=== PATIENT | female | born 1940 | race Caucasian/White ===

== ENCOUNTER 2016-11-15 12:34 | Inpatient (IN) | payer MEDICARE, OTHER ==
[~2016-11-15] VITALS: Ht 154.9 cm; Wt 43.7 kg
[~2016-11-15 12:34] MED LIST: ASPI81CH43 PO; ATE50T PO; BISA-13 PO; IBAN150T PO; OMEP20CA74 PO; SIMV40TA96 PO; VALS40TA2 PO
[2016-11-15] MEDS ORDERED: ONDANSETRON HCL 4 MG/2 ML VIAL ONE (13:56)
[2016-11-15 14:25] LABS: Basophils # (auto) 0 uL; Basophils % (auto) 0.1 % (0.0-2.0); Eosinophils # (auto) 0 uL; Platelet Count (auto) 337 10^3/uL (140-450); White Blood Cell 12.5 10^3/uL (4.4-10.8)
[2016-11-15 14:26] LABS: Hematocrit 41.4 % (36.0-46.0); Hemoglobin 13.5 g/dL (12.2-16.2); Lymphocytes # (auto) 0.8 uL; Lymphocytes % (auto) 6.4 % (10.0-50.0); Mean Corpuscular Hemoglobin 23.8 pg (28.0-32.0); Mean Corpuscular Hgb Conc. 32.5 g/dL (32.0-36.0); Mean Corpuscular Volume 73.2 fL (80.0-100.0); Mean Platelet Volume 8.6 fL (6.9-10.8); Monocytes # (auto) 0.6 uL; Monocytes % (auto) 5.1 % (0.0-12.0); Neutrophils % (auto) 88.4 % (37.0-80.0); Red Cell Distribution Width 15.5 % (11.8-14.3)
[2016-11-15] MEDS ORDERED: SODIUM CHLORIDE 0.9% 1,000 ML IV ONE (14:26)
[2016-11-15] MEDS ORDERED: ONDANSETRON HCL 4 MG/2 ML VIAL IV ONE (14:30)
[2016-11-15] MEDS ORDERED: PROMETHAZINE HCL 25 MG/ML 1ML IV PRN ×2 (14:30→17:00)
[2016-11-15 14:49] LABS: Albumin 3.1 g/dL (3.4-5.0); Alkaline Phosphatase 91 U/L (45-117); Anion Gap 9 (5-15); Aspartate Aminotransferase 46 U/L (15-37); BUN/Creatinine Ratio 37.9; Bilirubin, Total 0.6 mg/dL (0.2-1.0); Blood Urea Nitrogen 22 mg/dL (7-18); Calcium 8.5 mg/dL (8.5-10.1); Carbon Dioxide 34 mmol/L (21-32); Chloride 87 mmol/L (98-107); GFR African American 129 mL/min; GFR Non-African American 107 mL/min; Glucose 90 mg/dL (74-106); Magnesium 2.5 mg/dL (1.6-2.6); Sodium 130 mmol/L (136-145); Total Protein 6.5 g/dL (6.4-8.2)
[2016-11-15 14:53] LABS: Potassium 2.8 mmol/L (3.5-5.1)
[2016-11-15] MEDS ORDERED: SOD CHL 0.9%/ KCL 40MEQ 250 ML IV ONE (15:15)
[2016-11-15] MEDS ORDERED: LORazepam 2MG/ML-1ML VIAL ONE (16:16)
[2016-11-15] MEDS ORDERED: LORazepam 2MG/ML-1ML VIAL IV ONE (16:30)
[2016-11-15] MEDS ORDERED: MORPHINE SULF INJ 2 MG/ML SYRINGE 1ML IV PRN ×2 (17:00)
[2016-11-15] MEDS: SOD CHL 0.9%/ KCL 40MEQ 1,000 ML IV SCH ×2 (17:00→21:34)
[2016-11-15] MEDS ORDERED: cefTRIAXone 1GM/50ML D5W 50 ML IV ONE (17:00)
[2016-11-15] MEDS ORDERED: TEMAZEPAM 15 MG CAP PO PRN (17:00)
[2016-11-15] MEDS ORDERED: ACETAMINOPHEN 500 MG TAB PO PRN (17:00)
[2016-11-15] MEDS ORDERED: BISACODYL 5 MG EC TAB PO PRN (17:00)
[2016-11-15] MEDS ORDERED: NITROGLYCERIN 0.4 MG SL TAB SL PRN (17:00)
[2016-11-15] MEDS ORDERED: HYDROcodone-ACET 5/325MG TAB PO PRN (17:00)
[2016-11-15] MEDS ORDERED: LORazepam 0.5 MG TAB PO PRN (17:00)
[2016-11-15] MEDS ORDERED: POTASSIUM CHLORIDE 40 MEQ in SODIUM CHL 0.9% 250 ML IV ONE (17:30)
[2016-11-15] MEDS: metroNIDAZOLE 500MG/100ML 100 ML IV SCH (18:00)
[2016-11-15 20:00] VITALS: BP 129/40
[2016-11-15 20:15] VITALS: BP 142/61
[2016-11-15] MEDS: ATORVASTATIN 20 MG TAB PO SCH (21:34)
[2016-11-15] MEDS: FAMOTIDINE 20 MG TAB PO SCH (21:34)
[2016-11-15 22:00] VITALS: BP 129/40
[2016-11-16] MEDS: metroNIDAZOLE 500MG/100ML 100 ML IV SCH ×4 (00:43→18:00)
[2016-11-16] MEDS ORDERED: HYDR12.56 PO (03:18)
[2016-11-16] MEDS ORDERED: PANT40TA2 PO (03:18)
[2016-11-16] MEDS ORDERED: LORA1TAB12 PO (03:18)
[2016-11-16] MEDS ORDERED: TRAZ150T79 PO (03:18)
[2016-11-16] MEDS ORDERED: BUSP15TA60 PO (03:18)
[2016-11-16] MEDS ORDERED: AMLO5TAB2 PO (03:18)
[2016-11-16] MEDS ORDERED: OLAN5TAB30 PO (03:18)
[2016-11-16] MEDS ORDERED: MIRT45TA3 PO (03:18)
[2016-11-16 05:47] VITALS: BP 140/66
[2016-11-16 07:36] LABS: Hematocrit 43.2 % (36.0-46.0); Hemoglobin 13.9 g/dL (12.2-16.2); Mean Corpuscular Hemoglobin 23.8 pg (28.0-32.0); Mean Corpuscular Hgb Conc. 32.2 g/dL (32.0-36.0); Mean Corpuscular Volume 73.9 fL (80.0-100.0); Mean Platelet Volume 8.9 fL (6.9-10.8); Platelet Count (auto) 336 10^3/uL (140-450); White Blood Cell 16.3 10^3/uL (4.4-10.8)
[2016-11-16 07:42] LABS: Albumin 2.9 g/dL (3.4-5.0); BUN/Creatinine Ratio 41.2; Bilirubin, Total 0.8 mg/dL (0.2-1.0); Calcium 8.3 mg/dL (8.5-10.1); Total Protein 6.4 g/dL (6.4-8.2)
[2016-11-16 07:46] LABS: Metamyelocytes % 0
[2016-11-16 07:47] LABS: Myelocytes % 0; Promyelocytes % 0; Reactive Lymphocytes 0
[2016-11-16 08:00] VITALS: BP 144/82
[2016-11-16 08:10] LABS: Anisocytosis Slight; Hypochromia Slight; Microcytosis Slight; Ovalocytes FEW; Platelet Estimate Adequate
[2016-11-16 09:00] VITALS: BP 144/82
[2016-11-16] MEDS: cefTRIAXone 1GM/50ML D5W 50 ML IV SCH (09:29)
[2016-11-16] MEDS: ENOXAPARIN SOD 40 MG/0.4 ML SYRINGE SC SCH (09:36)
[2016-11-16] MEDS: FAMOTIDINE 20 MG TAB PO SCH ×2 (10:00→22:00)
[2016-11-16 10:09] LABS: INR 1.13 (0.9-1.15); Prothrombin Time 12.3 sec (9.37-12.3)
[2016-11-16] MEDS: SOD CHL 0.9%/ KCL 40MEQ 1,000 ML IV SCH ×2 (10:30→23:00)
[2016-11-16 11:00] VITALS: BP 120/71
[2016-11-16] MEDS: ASPirin 81 mg TAB PO SCH (11:48)
[2016-11-16] MEDS: VALSARTAN 80 MG TAB PO SCH (12:02)
[2016-11-16] MEDS: PANTOPRAZOLE 40 MG TAB PO SCH (12:02)
[2016-11-16] MEDS: ATENOLOL 50 MG TAB PO SCH (12:04)
[2016-11-16 17:08] LABS: Urine Blood Negative /uL (Negative); Urine Glucose Normal (Normal); Urine Ketone 3+ (Negative); Urine Mucus FEW (None Seen); Urine Nitrite Negative (Negative); Urine RBC 11 /hpf (0 - 4); Urine Urobilinogen Normal (Negative)
[2016-11-16 17:14] LABS: Urine Bilirubin POSITIVE (Negative); Urine Color Amber (Yellow)
[2016-11-16 20:00] VITALS: BP 144/75
[2016-11-16] MEDS: ATORVASTATIN 20 MG TAB PO SCH (22:00)
[2016-11-16 22:11] VITALS: BP 144/75
[2016-11-16] MEDS ORDERED: LIDOCAINE 1% HCL (LOCAL ANESTH.) INJ 20ML MDV ID ONE (23:00)
[2016-11-17] MEDS: metroNIDAZOLE 500MG/100ML 100 ML IV SCH ×4 (00:15→17:28)
[2016-11-17 05:28] VITALS: BP 114/61
[2016-11-17] MEDS: SOD CHL 0.9%/ KCL 40MEQ 1,000 ML IV SCH ×2 (06:42→17:29)
[2016-11-17 06:50] LABS: Basophils # (auto) 0 uL; Basophils % (auto) 0.1 % (0.0-2.0); Eosinophils # (auto) 0 uL; Lymphocytes # (auto) 1.2 uL; Monocytes # (auto) 0.5 uL; Monocytes % (auto) 3.6 % (0.0-12.0)
[2016-11-17 06:56] LABS: Hematocrit 36.7 % (36.0-46.0); Lymphocytes % (auto) 7.6 % (10.0-50.0); Mean Corpuscular Hemoglobin 24.3 pg (28.0-32.0); Mean Corpuscular Hgb Conc. 32.7 g/dL (32.0-36.0); Mean Corpuscular Volume 74.3 fL (80.0-100.0); Mean Platelet Volume 8.9 fL (6.9-10.8); Neutrophils # (auto) 13.6 uL; Neutrophils % (auto) 88.7 % (37.0-80.0); Platelet Count (auto) 257 10^3/uL (140-450); Red Cell Distribution Width 15.6 % (11.8-14.3); White Blood Cell 15.3 10^3/uL (4.4-10.8)
[2016-11-17 06:58] LABS: BUN/Creatinine Ratio 45.7; Calcium 7.8 mg/dL (8.5-10.1); Potassium 3.4 mmol/L (3.5-5.1)
[2016-11-17 08:13] VITALS: BP 129/61
[2016-11-17 08:15] VITALS: BP 120/71
[2016-11-17] MEDS: VALSARTAN 80 MG TAB PO SCH (10:00)
[2016-11-17] MEDS: ASPirin 81 mg TAB PO SCH (10:00)
[2016-11-17] MEDS: ATENOLOL 50 MG TAB PO SCH (10:00)
[2016-11-17] MEDS: ENOXAPARIN SOD 40 MG/0.4 ML SYRINGE SC SCH (10:00)
[2016-11-17] MEDS: FAMOTIDINE 20 MG TAB PO SCH ×2 (10:00→21:31)
[2016-11-17] MEDS: PANTOPRAZOLE 40 MG TAB PO SCH (10:00)
[2016-11-17] MEDS ORDERED: POTASSIUM CHL 20 Meq TABLET PO ONE (10:45)
[2016-11-17] MEDS: cefTRIAXone 1GM/50ML D5W 50 ML IV SCH (11:05)
[2016-11-17] MEDS: SODIUM CHLOR 0.9% PF (SALINE LOCK) 10ML VIAL IV SCH ×2 (11:06→21:34)
[2016-11-17 12:05] VITALS: BP 126/60
[2016-11-17 16:41] VITALS: BP 128/60
[2016-11-17] MEDS: ATORVASTATIN 20 MG TAB PO SCH (21:31)
[2016-11-17 22:00] VITALS: BP 137/62
[2016-11-17] MEDS: SENNA 8.6 MG TAB PO SCH (22:00)
[2016-11-17] MEDS: DOCUSATE SOD 100 MG CAP PO SCH (22:00)
[2016-11-18] MEDS: metroNIDAZOLE 500MG/100ML 100 ML IV SCH ×5 (00:07→23:32)
[2016-11-18] MEDS: SOD CHL 0.9%/ KCL 40MEQ 1,000 ML IV SCH ×2 (04:42→11:42)
[2016-11-18 05:00] VITALS: BP 113/52
[2016-11-18 06:22] LABS: Basophils # (auto) 0 uL; Basophils % (auto) 0.1 % (0.0-2.0); Eosinophils # (auto) 0 uL; Lymphocytes # (auto) 1.1 uL
[2016-11-18 06:25] LABS: Eosinophils % (auto) 0.2 % (0.0-7.0); Hemoglobin 10.3 g/dL (12.2-16.2); Lymphocytes % (auto) 9.6 % (10.0-50.0); Mean Corpuscular Hemoglobin 24.2 pg (28.0-32.0); Mean Corpuscular Hgb Conc. 32.3 g/dL (32.0-36.0); Mean Corpuscular Volume 74.9 fL (80.0-100.0); Mean Platelet Volume 8.6 fL (6.9-10.8); Monocytes # (auto) 0.4 uL; Monocytes % (auto) 3.7 % (0.0-12.0); Neutrophils # (auto) 9.9 uL; Neutrophils % (auto) 86.4 % (37.0-80.0); Platelet Count (auto) 209 10^3/uL (140-450); Red Cell Distribution Width 15.7 % (11.8-14.3); White Blood Cell 11.5 10^3/uL (4.4-10.8)
[2016-11-18 07:25] LABS: BUN/Creatinine Ratio 38.9; Calcium 7.2 mg/dL (8.5-10.1); Potassium 5.4 mmol/L (3.5-5.1)
[2016-11-18 09:00] VITALS: BP 140/54
[2016-11-18] MEDS: cefTRIAXone 1GM/50ML D5W 50 ML IV SCH (09:26)
[2016-11-18] MEDS: SODIUM CHLOR 0.9% PF (SALINE LOCK) 10ML VIAL IV SCH ×2 (10:00→22:03)
[2016-11-18] MEDS: ENOXAPARIN SOD 40 MG/0.4 ML SYRINGE SC SCH (10:59)
[2016-11-18] MEDS: DOCUSATE SOD 100 MG CAP PO SCH ×3 (10:59→22:03)
[2016-11-18] MEDS: VALSARTAN 80 MG TAB PO SCH (11:00)
[2016-11-18] MEDS: FAMOTIDINE 20 MG TAB PO SCH ×3 (11:01→22:04)
[2016-11-18] MEDS: PANTOPRAZOLE 40 MG TAB PO SCH (11:01)
[2016-11-18] MEDS: ATENOLOL 50 MG TAB PO SCH (11:01)
[2016-11-18] MEDS: ASPirin 81 mg TAB PO SCH (11:02)
[2016-11-18 13:00] VITALS: BP 146/59
[2016-11-18] MEDS ORDERED: SODIUM CHLORIDE 0.9% 1,000 ML IV ONE (13:00)
[2016-11-18 16:34] VITALS: BP 145/54
[2016-11-18 21:59] VITALS: BP 159/66
[2016-11-18] MEDS: SENNA 8.6 MG TAB PO SCH ×2 (22:00→22:04)
[2016-11-18] MEDS: ATORVASTATIN 20 MG TAB PO SCH ×2 (22:00→22:04)
[2016-11-19 05:00] VITALS: BP 144/66
[2016-11-19] MEDS: metroNIDAZOLE 500MG/100ML 100 ML IV SCH ×4 (05:32→23:31)
[2016-11-19 08:57] VITALS: BP 136/59
[2016-11-19] MEDS: cefTRIAXone 1GM/50ML D5W 50 ML IV SCH (09:58)
[2016-11-19] MEDS: VALSARTAN 80 MG TAB PO SCH (09:59)
[2016-11-19] MEDS: FAMOTIDINE 20 MG TAB PO SCH ×2 (10:00→21:46)
[2016-11-19] MEDS: DOCUSATE SOD 100 MG CAP PO SCH ×2 (10:00→21:46)
[2016-11-19] MEDS: ENOXAPARIN SOD 40 MG/0.4 ML SYRINGE SC SCH (10:00)
[2016-11-19] MEDS: ATENOLOL 50 MG TAB PO SCH (10:00)
[2016-11-19] MEDS: ASPirin 81 mg TAB PO SCH (10:00)
[2016-11-19] MEDS: PANTOPRAZOLE 40 MG TAB PO SCH (10:00)
[2016-11-19] MEDS: SODIUM CHLOR 0.9% PF (SALINE LOCK) 10ML VIAL IV SCH ×2 (11:15→21:45)
[2016-11-19 16:43] VITALS: BP 135/93
[2016-11-19] MEDS: SENNA 8.6 MG TAB PO SCH (21:46)
[2016-11-19] MEDS: ATORVASTATIN 20 MG TAB PO SCH (21:46)
[2016-11-19 22:26] VITALS: BP 148/64
[2016-11-20 05:27] VITALS: BP 136/77
[2016-11-20] MEDS: metroNIDAZOLE 500MG/100ML 100 ML IV SCH ×3 (05:33→17:56)
[2016-11-20 06:56] LABS: Basophils # (auto) 0 uL; Basophils % (auto) 0.1 % (0.0-2.0); Eosinophils # (auto) 0 uL; Hemoglobin 14.3 g/dL (12.2-16.2); Monocytes # (auto) 0.6 uL; Monocytes % (auto) 5.6 % (0.0-12.0); Nucleated Red Blood Cells % 0.1 %; Red Cell Distribution Width 15.3 % (11.8-14.3)
[2016-11-20 07:02] LABS: Eosinophils % (auto) 0.2 % (0.0-7.0); Hematocrit 43.6 % (36.0-46.0); Lymphocytes # (auto) 0.8 uL; Lymphocytes % (auto) 8.2 % (10.0-50.0); Mean Corpuscular Hemoglobin 24.3 pg (28.0-32.0); Mean Corpuscular Hgb Conc. 32.8 g/dL (32.0-36.0); Mean Corpuscular Volume 73.9 fL (80.0-100.0); Mean Platelet Volume 8.6 fL (6.9-10.8); Neutrophils # (auto) 8.5 uL; Neutrophils % (auto) 85.9 % (37.0-80.0); Platelet Count (auto) 253 10^3/uL (140-450); White Blood Cell 9.9 10^3/uL (4.4-10.8)
[2016-11-20 07:07] LABS: Albumin 2.4 g/dL (3.4-5.0); BUN/Creatinine Ratio 26.7; Calcium 7.8 mg/dL (8.5-10.1)
[2016-11-20 07:10] LABS: Bilirubin, Total 0.6 mg/dL (0.2-1.0); Total Protein 5.6 g/dL (6.4-8.2)
[2016-11-20 07:32] LABS: Potassium 2.4 mmol/L (3.5-5.1)
[2016-11-20 09:06] VITALS: BP 138/59
[2016-11-20] MEDS: ASPirin 81 mg TAB PO SCH (10:00)
[2016-11-20] MEDS: DOCUSATE SOD 100 MG CAP PO SCH (10:00)
[2016-11-20] MEDS: FAMOTIDINE 20 MG TAB PO SCH (10:00)
[2016-11-20] MEDS: PANTOPRAZOLE 40 MG TAB PO SCH (10:00)
[2016-11-20] MEDS: ENOXAPARIN SOD 40 MG/0.4 ML SYRINGE SC SCH (10:00)
[2016-11-20] MEDS: cefTRIAXone 1GM/50ML D5W 50 ML IV SCH (10:37)
[2016-11-20] MEDS: SODIUM CHLOR 0.9% PF (SALINE LOCK) 10ML VIAL IV SCH (10:37)
[2016-11-20] MEDS: VALSARTAN 80 MG TAB PO SCH (10:38)
[2016-11-20] MEDS: ATENOLOL 50 MG TAB PO SCH (10:39)
[2016-11-20] MEDS ORDERED: POTASSIUM CHL 10% (20 MEQ/15ML) 15ml ORAL SOLN NG ONE ×3 (12:00→14:00)
[2016-11-20 13:05] VITALS: BP 139/85
[2016-11-20] MEDS ORDERED: ASPI81CH43 PO (14:17)
[2016-11-20] MEDS ORDERED: ATOR20TA50 PO (14:17)
[2016-11-20] MEDS ORDERED: DOCU100C8 PO (14:17)
[2016-11-20] MEDS ORDERED: SENN-51 PO (14:17)
[2016-11-20 16:25] LABS: BUN/Creatinine Ratio 19.6; Calcium 7.7 mg/dL (8.5-10.1); Potassium 4.2 mmol/L (3.5-5.1)
[2016-11-20 17:37] VITALS: BP 126/51
== END 2016-11-20 18:48 | disposition home or self-care (01) | DRG 872 ==
LOC: EDBD 12:34 → ER 12:34 → EDSEX 12:34 → TELE 12:35 → TELE-WESTW 20:00 → WEST WING 11-18 17:54
PROVIDERS: ADMIT Internal Medicine; ATTEND Nurse Practitioner Acute Care
PROC: 02HV33Z Insertion of Infusion Device into Superior Vena Cava, Percutaneous Approach (ICD-10-PCS; principal; 2016-11-16)
DX: A41.9 Sepsis, unspecified organism (principal); E44.1 Mild protein-calorie malnutrition; E86.0 Dehydration; E87.1 Hypo-osmolality and hyponatremia; Z68.1 Body mass index [BMI] 19.9 or less, adult; K56.41 Fecal impaction; K52.9 Noninfective gastroenteritis and colitis, unspecified; E87.6 Hypokalemia; H26.9 Unspecified cataract; I10 Essential (primary) hypertension; E78.5 Hyperlipidemia, unspecified; Z90.710 Acquired absence of both cervix and uterus; Z86.718 Personal history of other venous thrombosis and embolism; Z90.49 Acquired absence of other specified parts of digestive tract; Z82.3 Family history of stroke; Z82.49 Family history of ischemic heart disease and other diseases of the circulatory system; Z79.82 Long term (current) use of aspirin; Z79.899 Other long term (current) drug therapy
CPT/HCPCS: 36415; 36569; 51702; 71010; 74000; 74176; 80048; 80053; 81001; 83690; 83735; 84484; 85007; 85025; 85027; 85610; 85652; 86141; 87493; 93005; 96361; 96374; 96375; J0696; J2405; J3490